=== PATIENT | female | born 2000 | race African-American/Black ===

== ENCOUNTER 2020-05-19 14:31 | Emergency (ER) | payer BC ==
[~2020-05-19] VITALS: Ht 165.1 cm; Wt 63.6 kg
[2020-05-19 14:37] VITALS: BP 119/83; TEMP 98.6
[2020-05-19 16:04] VITALS: PULSE 83
== END 2020-05-19 16:04 | disposition home or self-care (01) ==
LOC: COL.ER 14:31
DX: S86.011A Strain of right Achilles tendon, initial encounter (principal); X50.0XXA Overexertion from strenuous movement or load, initial encounter; Y93.73 Activity, racquet and hand sports; Y92.312 Tennis court as the place of occurrence of the external cause

== ENCOUNTER 2020-11-25 17:10 | Emergency (ER) | payer SELFPAY ==
[~2020-11-25] VITALS: Ht 165.1 cm; Wt 65.9 kg
[2020-11-25 18:37] LABS: COLLECTION METHOD RANDOM VOIDED
[2020-11-25 18:46] LABS: MUCOUS Present /lpf; PH 7 (5-8); URINE APPEARANCE Hazy; URINE BACTERIA None Seen /hpf; URINE BILIRUBIN Negative (NEGATIVE); URINE BLOOD Negative (NEGATIVE); URINE COLOR Yellow; URINE GLUCOSE Negative (NEGATIVE); URINE KETONE 1+ (NEGATIVE); URINE LEUKOCYTE ESTERASE Negative (NEGATIVE); URINE NITRATE Negative (NEGATIVE); URINE PROTEIN(semi-quant) 1+ (NEGATIVE); URINE UROBILINOGEN >=4.0 mg/dL (NEGATIVE)
[2020-11-25 18:57] LABS: TRICYCLIC ANTIDEPRESS URINE NEGATIVE
[2020-11-25 19:29] VITALS: BP 126/68; PULSE 84; TEMP 98.7
== END 2020-11-25 19:25 | disposition home or self-care (01) ==
LOC: COL.ER 17:10
PROVIDERS: Physician Assistant
DX: Z11.3 Encounter for screening for infections with a predominantly sexual mode of transmission (principal)
CPT/HCPCS: J0696